=== PATIENT | female | born 1970 | race Caucasian/White ===

== ENCOUNTER 2024-06-15 11:20 | Emergency (ER) | payer BC ==
[2024-06-15 12:14] LABS: BASOPHILS ABSOLUTE AUTO 0.2 K/mm3 (0.0-0.2); EOSINOPHILS ABSOLUTE AUTO 0.3 K/mm3 (0.0-0.4); EOSINOPHILS PERCENT AUTO 2.9 % (0.0-6.0); HEMATOCRIT 43.4 % (37.0-47.0); HEMOGLOBIN 14.8 gm/dl (12.0-16.0); IMMATURE GRAN ABSOLUTE AUTO 0.02 K/mm3 (0.00-0.05); IMMATURE GRAN PERCENT AUTO 0.2 % (0.0-0.4); LYMPHOCYTES ABSOLUTE AUTO 3.5 K/mm3 (1.0-4.8); LYMPHOCYTES PERCENT AUTO 38.4 % (24.0-44.0); MEAN CORPUSCULAR HEMOGLOBIN 31.3 pg (28.0-32.0); MEAN CORPUSCULAR HGB CONC 34.1 g/dl (32.0-36.0); MEAN CORPUSCULAR VOLUME 91.8 fl (83.0-99.0); MEAN PLATELET VOLUME 10.2 fl (9.4-12.3); MONOCYTES PERCENT AUTO 11.3 % (0.0-8.0); NEUTROPHILS ABSOLUTE AUTO 4.1 K/mm3 (1.8-7.7); NEUTROPHILS PERCENT AUTO 45.2 % (41.0-71.0); PLATELET COUNT,PLT 420 K/mm3 (150-400); RED BLOOD CELL COUNT 4.73 M/mm3 (4.10-5.30); WHITE BLOOD CELL COUNT,WBC 8.99 K/mm3 (3.9-11.3)
[2024-06-15] MEDS: Iopamidol 755 Mg/ML 100 ML Bottle IVPUSH ONE (12:24)
[2024-06-15] MEDS: Sodium Chloride 0.9% 100 ML IV SCH (12:24)
[2024-06-15] MEDS: Sodium Chloride 0.9% 10 ML Syringe FLUSH PRN ×2 (12:24→12:32)
[2024-06-15 12:25] LABS: A/G RATIO 1.4 (1-2); ALANINE AMINOTRANSFERASE,ALT 34 U/L (14-59); ALBUMIN 4.3 g/dl (3.4-5.0); ALKALINE PHOSPHATASE 67 U/L (46-116); ANION GAP 11.6 (5-15); ASPARTATE AMNIOTRANSFERASE,AST 30 U/L (15-37); BILIRUBIN TOTAL 0.5 mg/dL (0.2-1.0); BLOOD UREA NITROGEN,BUN 7 mg/dL (7-18); CALCIUM 9.1 mg/dL (8.5-10.1); CARBON DIOXIDE,CO2 28 mEq/L (21-32); CHLORIDE,CL 105 mEq/L (98-107); CREATININE 0.5 mg/dL (0.55-1.02); ESTIMATED GFR 112 mL/min (>60); GLUCOSE RANDOM 93 mg/dL (70-99); POTASSIUM,K 3.6 mEq/L (3.5-5.1); PROTEIN TOTAL,TP 7.3 g/dl (6.4-8.2); SODIUM,NA 141 mEq/L (136-145)
[2024-06-15] MEDS: Meclizine 25 MG Tab PO ONE (12:31)
[2024-06-15 12:36] LABS: TROPONIN I HIGH SENSITIVITY < 4 pg/mL (<=51)
== END 2024-06-15 16:00 | disposition home or self-care (01) ==
LOC: JD.ED 11:20
DX: R07.89 Other chest pain (principal); R42 Dizziness and giddiness; Z91.040 Latex allergy status; Z88.5 Allergy status to narcotic agent; Z88.0 Allergy status to penicillin; Z91.041 Radiographic dye allergy status
CPT/HCPCS: 36415; 71275; 80053; 83735; 84484; 85025; 93005; 93971; 99285; A9270; J3490; Q9967; 93010; 99283